=== PATIENT | male | born 1975 | race African-American/Black ===

== ENCOUNTER 2019-05-05 08:08 | Emergency (ER) | payer OTHER ==
[~2019-05-05] VITALS: Ht 170.2 cm; Wt 89.9 kg
[2019-05-05 08:13] VITALS: Ht 170.2 cm; Wt 89.9 kg
[2019-05-05] MEDS ORDERED: SOD CHLORIDE 0.9% 100 ML ONE (08:29)
[2019-05-05] MEDS ORDERED: IODIXANOL LOCM 100 ML BTL ONE (08:29)
[2019-05-05] MEDS ORDERED: LABETALOL HCL 20MG INJ IV PRN (08:30)
--- NOTE | 2019-05-05 08:33 | ERD ---
ER Documentation Chief Complaint Chief Complaint left side weakness since 0400 HPI Is a 43-year-old male with a history of diabetes who presents for evaluation of left-sided weakness since about 3 AM this morning, he states that the symptoms have been intermittent. He has had the numbness in his hands that usually goes away, however this time it has not. He also notes that the heaviness in his leg, which localized to his left side is new. He denies any chest pain or shortness of breath. He has not had a fever. ROS All systems reviewed and are negative except as per history of present illness. Allergies Allergies: Coded Allergies: No Known Allergy (Unverified , 05/05/19) Physical Exam Vitals Vital Signs Date Temp Pulse Resp B/P (MAP) Pulse Ox O2 O2 Flow FiO2 Time Delivery Rate 05/05/19 88 18 188/107 98 Room Air 09:21 (134) 05/05/19 97.4 87 18 257/121 99 08:13 (166) Physical Exam Const: Ambulatory, nontoxic Head: Atraumatic Eyes: Normal Conjunctiva ENT: Normal External Ears, Nose and Mouth. Neck: Full range of motion. No meningismus. Resp: Clear to auscultation bilaterally Cardio: Regular rate and rhythm, no murmurs Abd: Soft, non tender, non distended no rebound or guarding. Normal bowel sounds Skin: No petechiae or rashes Back: No midline or flank tenderness Ext: Cranial nerves II through XII are intact, speech is normal, patient is amatory with normal gait, strength is 5 out of 5 in both extremities, there is sign of possible pronator drift on the left upper extremity. Neur: Awake and alert Psych: Normal Mood and Affect Result Diagram: 05/05/19 0831 05/05/19 0832 Results 24 hrs Laboratory Tests Test 05/05/19 08:30 05/05/19 08:31 05/05/19 08:32 Bedside Glucose 264 mg/dL White Blood Count 5.0 10^3/ul Red Blood Count 5.77 10^6/ul Hemoglobin 16.3 g/dl Hematocrit 46.4 % Mean Corpuscular Volume 80.4 fl Mean Corpuscular Hemoglobin 28.2 pg Mean Corpuscular 35.1 g/dl Hemoglobin Concent Red Cell Distribution Width 11.2 % Platelet Count 251 10^3/UL Mean Platelet Volume 9.8 fl Immature Granulocytes % 0.200 % Neutrophils % 43.0 % Lymphocytes % 34.8 % Monocytes % 9.9 % Eosinophils % 11.1 % Basophils % 1.0 % Nucleated Red Blood Cells % 0.0 /100WBC Immature Granulocytes # 0.010 10^3/ul Neutrophils # 2.1 10^3/ul Lymphocytes # 1.7 10^3/ul Monocytes # 0.5 10^3/ul Eosinophils # 0.6 10^3/ul Basophils # 0.1 10^3/ul Nucleated Red Blood Cells # 0.0 10^3/ul Prothrombin Time 11.8 Sec Prothrombin Time Ratio 0.9 INR International Normalized Ratio 0.86 Activated Partial Thromboplast 22.5 Sec Time Hemoglobin A1c 8.4 % Sodium Level 140 mmol/L Potassium Level 4.2 mmol/L Chloride Level 101 mmol/L Carbon Dioxide Level 25 mmol/L Anion Gap 14 Blood Urea Nitrogen 13 mg/dl Creatinine 0.92 mg/dl Est Glomerular Filtrat Rate mL/min > 60 mL/min Glucose Level 268 mg/dl Calcium Level 9.2 mg/dl Creatine Kinase 102 IU/L Creatine Kinase Index 0.6 Creatinine Kinase MB (Mass) 0.57 ng/ml Troponin I < 0.012 ng/ml Triglycerides Level 569 mg/dl Cholesterol Level 192 mg/dl LDL Cholesterol, Calculated 36 mg/dl HDL Cholesterol 42 mg/dl Cholesterol/HDL Ratio 4.5 RATIO Ethyl Alcohol Level < 10.0 mg/dl Current Medications Medications Dose Sig/Danny Start Time Status Last (Trade) Ordered Route PRN Stop Time Admin Dose Reason Admin Labetalol 20 mg Q20M PRN 05/05/19 05/05/19 HCl IV ELEVATED 08:30 08:56 (Labetalol) BLOOD PRESSURE IV Flush 10 ml STK-MED 05/05/19 DC (NS 10 ml) ONCE .ROUTE 08:05/05/19 08:30 Sodium 100 ml @ ud STK-MED 05/05/19 DC Chloride ONCE .ROUTE 08:05/05/19 08:30 Iodixanol 100 ml STK-MED 05/05/19 DC (Visipaque ONCE .ROUTE 08:05/05/19 Locm) 08:30 Procedures/MDM This is a 43-year-old male who presents for evaluation of intermittent left- sided weakness. Patient states he feels numbness over his left hand, and feels a heaviness over his legs, his exam was concerning for possible pronator drift on the left side, thus a code stroke was activated. He was also noted to be significant hypertensive with blood pressure in the 250s. 8:29 AM: Code stroke activated. Ordered dose of labetalol for hypertension. 9:08 AM: Radiology called to report a large right-sided M1 occlusion of the MCA. Discussed with stroke neurologist, plan for transfer. Subsequently spoke with [facility] Song, Dr. Carlisle, is just accepting physician. Patient given aspirin 325 mg p.o. Critical Care Time: 30 minutes Treatments/Evaluations: Close monitoring and treatment of unstable vital signs, cardiorespiratory, and neurologic status, while maintaining tight balance of fluid, respiratory, and cardiac interventions. This time includes discussing the case with the patient and the patient's family. This time does not include all procedures stated elsewhere in this record. This time also includes reviewing old records, labs and radiological studies. This time includes examining and re- examining the patient. Additionally, this time also includes arranging care with admitting and consulting physicians. EKG: Rate/Rhythm: Normal Sinus Rhythm QRS, ST, T-waves: No changes consistent w/ acute ischemia Impression: No evidence of ischemia or arrhythmia Departure Diagnosis: Primary Impression: Acute weakness Condition: Serious SHONA HAYS MD May 05, 2019 08:33
--- NOTE | 2019-05-05 09:35 | STROKE ---
Date/Time of Note Date/Time of Note DATE: 05/05/19 TIME: 09:23 Patient Information General Patient location: emergency Arrival Date Age 43 Gender male Weight 89.9 kg POC Glucose Glucose Result Bedside Glucose - 72 Hours Test 05/05/19 08:30 Bedside Glucose 264 mg/dL (70-220) H Vital Signs Vital Signs Vital Signs Date Temp Pulse Resp B/P (MAP) Pulse Ox O2 O2 Flow FiO2 Time Delivery Rate 05/05/19 97.4 87 18 257/121 99 08:13 (166) Patient History Current Medications Allergies: Coded Allergies: No Known Allergy (Unverified , 05/05/19) Labs Coagulation Labs: Coagulation Test 05/05/19 08:31 Activated Partial Thromboplast Time 22.5 Sec (23.0-35.0) History & Physical Patient History Notes Pt Hx Reviewed History of Present Illness 43 yo DM woke at 3am of left sided weakness. Last normal at 10pm. Patient lives alone. Review of Systems Constitutional: no symptoms reported EENTM: no symptoms reported Respiratory: no symptoms reported Cardiovascular: no symptoms reported Gastrointestinal: no symptoms reported Genitourinary: no symptoms reported Musculoskeletal: no symptoms reported Skin: no symptoms reported Psychiatric/Neurological: no symptoms reported All Other Systems: Reviewed and Negative NIH Stroke Scale NIH Stroke Scale [id number] l4d LOC Questions: Nrljh6b LOC Commands: Iohbw4p t Gaze: Ujcxx5o Tbbik6y alsy: Zwgct6l or Arm - Left: Hkayv5q t: Lzgwg5t eft: Ddlgp2g t: Szjuj3j Vjoii0g Npwjc2z Ujqrh8d marcus: Sbflp1o Urial1m 4Bd Total Score: Klgrw6u Date/Time Recorded DATE: 05/05/19 TIME: 09:23 Submitted By Nay Abad t-PA Imaging Review Imaging Reviewed: Yes Date/Time Imaging Reviewed DATE: 05/05/19 TIME: 08:[address] Head- no acute changes; CTA of the head and neck- right M1 occlusion Inclusion/Exclusion Criteria outside time window t-PA Administration Recommendation: No Weight 89.9 kg Recommedation submitted by Nay Abad Reason t-PA not Recommended outside time window t-PA Not Recommended Date/Time 05/05/19 08:40 Recommendations Impression Diagnosis I63.511 right MCA ischemic stroke Disposition transfer to [facility] Recommendation 43yo M presents with acute onset left sided weakness. Neurological exam is notable for left facial droop and left arm and left leg drift. I believe the patient is having an acute ischemic stroke. CTA of the head and neck demonstrates M1 occlusion per radiologist and on my review. Patient is being transferred to [facility] for possible neurointerventional treatment. I recommend further workup include MRI Brain without gadolinium and transthoracic echocardiogram. [id number] Labs: Sfikk8q Lipid Proile Hgb A1C CMP CBC w/Diff Urinaysis Pnscf8Hw Therapy: [address] Physical Therapy Speech Therapy Occupational Therapy [id number] [place]. Recommendations: Vsqrv3k Bedside Swallow Evaluation Pnumatic Compression Devices Stroke Education Smoking Education NAY ABAD May 05, 2019 09:34
[2019-05-05] MEDS ORDERED: niCARdipine-NS 0.1MG/ML DRIP 200 ML IV STA (10:09)
[2019-05-05 10:27] VITALS: BP 199/113; PULSE 85; RESP 18
[2019-05-05] MEDS ORDERED: LABETALOL HCL 20MG INJ IV ONE (10:30)
[2019-05-05] MEDS ORDERED: hydrALAzine 20 MG INJ IV ONE (10:30)
== END 2019-05-05 10:35 | disposition short-term general hospital (02) ==
LOC: E/R 08:08
DX: R53.1 Weakness (principal); E11.9 Type 2 diabetes mellitus without complications; R20.0 Anesthesia of skin
CPT/HCPCS: 36415; 70450; 70496; 70498; 71045; 80048; 80061; 80307; 82550; 82553; 82962; 83036; 84484; 85025; 85610; 85730; 93005; 96374; 96375; 99285; J0360; Q9967